=== PATIENT | female | born 1960 | race Two or more races ===

== ENCOUNTER 2016-11-18 17:11 | Emergency (ER) | payer OTHER ==
[~2016-11-18] VITALS: Ht 165.1 cm; Wt 53.5 kg
[2016-11-18] MEDS ORDERED: HYDROMORPHONE 1 MG/1 ML DISP.SYRIN IM ONE (18:00)
[2016-11-18] MEDS ORDERED: DIAZEPAM 2 MG TABLET PO ONE (18:00)
[2016-11-18] MEDS ORDERED: ONDANSETRON 4 MG/2 ML VIAL IM ONE (18:00)
[2016-11-18] MEDS ORDERED: predniSONE 50 MG TABLET PO ONE (18:00)
[2016-11-18] MEDS ORDERED: ADVIL PO (18:01)
[2016-11-18] MEDS ORDERED: DIAZEPAM 2 MG TABLET ONE (18:09)
[2016-11-18] MEDS ORDERED: HYDROMORPHONE 1 MG/1 ML DISP.SYRIN ONE (18:09)
[2016-11-18] MEDS ORDERED: predniSONE 50 MG TABLET ONE (18:10)
[2016-11-18] MEDS ORDERED: ONDANSETRON 4 MG/2 ML VIAL ONE (18:10)
[2016-11-18] MEDS ORDERED: GLYCERIN ADULT RECTAL SUPP EACH RC ONE ×2 (18:30→18:38)
--- NOTE | 2016-11-18 18:40 | NUR ---
Pt states her pain is improved and she feels much better. Pt ambulated to restroom with minimal assistance.
[2016-11-18 19:10] VITALS: BP 116/68
== END 2016-11-18 19:13 | disposition home or self-care (01) ==
LOC: ER 17:14
DX: M54.40 Lumbago with sciatica, unspecified side (principal)
CPT/HCPCS: A4663; J1170; J2405; J7512